=== PATIENT | male | born 1950 | race Caucasian/White ===

== ENCOUNTER 2020-02-05 10:59 | Emergency (ER) | payer MEDICARE, SELFPAY ==
[2020-02-05 11:00] VITALS: BP 149/97; PULSE 105; RESP 22; TEMP 37.5; O2SAT 95; BMI 33.0
--- NOTE | 2020-02-05 11:20 | XR_ITS ---
PROCEDURE: XR CHEST 2V CLINICAL HISTORY: FEVER, SOA COMPARISON: CR CXR CHEST(2 VIEWS-NOT PORTABLE) from 09/06/2014 CT CTAC CTA-CHEST from 09/06/2014 CR CXR CHEST(2 VIEWS-NOT PORTABLE) from 09/08/2014 FINDINGS: The cardiomediastinal silhouette and pulmonary vascularity are within normal limits. The lungs are clear without infiltrates, suspicious nodules, or pleural effusions. Minimal fibrotic changes are present in the left lung base. There is ankylosis of the thoracic spine. IMPRESSION: No acute findings. Dictated by: Kj Roach MD 02/05/2020 15:15 Kj Roach MD in [place] 02/05/2020 15:15
[2020-02-05 11:33] LABS: Strep Scrn Group A (Rapid) Negative (Negative)
--- NOTE | 2020-02-05 11:48 | HMH.EDGENADL ---
ED Disposition Clinical Impression: Acute bacterial bronchitis Disposition: Home, Self-Care Condition on Discharge: Good Instructions: DI for Acute Bronchitis Prescriptions: methylPREDNISolone [Medrol] 4 mg PO DIRECTED #21 pack Prescription Printed Azithromycin [Z-Jcarlos 250mg Tab*] 250 mg PO UD DOSE PK #6 tab Prescription Printed Referrals: PCP,No [Primary Care Provider] - 3 days - Critical Care Critical Care Time: No Attestation: On 02/05/20, the high probability of a clinically significant, sudden or life threatening deterioration of the following system(s) required my full and direct attention, intervention and personal management. The time I documented below is in addition to time spent performing reported procedures but includes the following listed in this critical care notation. Medical Decision Making - Medical Records Medical records reviewed: Yes: I reviewed the patient's medical records. - Javier Inquiry Pt receiving controlled substance: No Vital Signs: 02/05/20 11:00 Temperature 99.5 F Temperature Source Oral Pulse Rate [Right] 105 H Respiratory Rate 22 Blood Pressure [Right Arm] 149/97 H Blood Pressure Mean [Right Arm] 114 02 Sat by Pulse Oximetry 95 - Lab Data Lab Results 02/05/20 11:15: Influenza Type A Ag Negative, Influenza Type B Ag Negative 02/05/20 11:15: Group A Strep Rapid Negative Orders (Tests/Meds): ORDERS Category Date Time Status Chest XR 2 view (NOT portable) [XR chest 2V] Stat Exams 02/05/20 11:20 Taken Covid-19 Nasal PCR Sendout [facility] 02/05/20 11:35 Received Strep Screen Confirmation Stat Micro 02/05/20 11:15 Received - Radiology Data #1 Image(s): Chest Image Reviewed: Yes I reviewed the patient's radiology results Preliminary Findings: Normal/NAD Medical Decision Narrative: Patient here with over a week of cough productive of yellowish phlegm and fevers. While his chest x-ray shows no signs of pneumonia, I am concerned that this febrile elderly patient with possible acute bacterial bronchitis. Will prescribe antibiotics and steroids and advised close follow-up with primary care provider. Flu, strep negative. COVID swab was sent. General Adult HPI - General Chief complaint: Fever Stated complaint: congestion fever cough Time Seen by Provider: 02/05/20 11:48 Mode of Arrival: Ambulatory Source of Information: Patient Limitations: No Limitations Description of Symptoms (Recalled from ER Triage Doc. by RN): PT C/O COUGH, SOA, PAIN WHEN HE BREATHES, FEVER, SORE THROAT AND CONGESTION X WEEK. - History of Present Illness HPI narrative: This is a 69-year-old male who presents to the emergency department for evaluation of cough productive of yellowish phlegm, sore throat and nasal congestion for the last week. He has been seen twice by the [facility] where he usually receives care and reportedly was prescribed some antibiotics, but the prescription has not come through. He denies any known history of pulmonary problems including COPD. He has had fevers that he has been using Advil to help control. He has been using [id number]-[id number]-[id number] cough medicine for his cough. He denies any vomiting, diarrhea. No exacerbating or alleviating factors. He has developed some anterior chest soreness after coughing. He denies any difficulty breathing. No known COVID exposure. - Related Data Previous Rx's Medication Instructions Recorded Azithromycin [Z-Jcarlos 250mg Tab*] 250 mg PO UD DOSE PK #6 tab 02/05/20 methylPREDNISolone [Medrol] 4 mg PO DIRECTED #21 pack 02/05/20 Allergies Allergy/AdvReac Type Severity Reaction Status Date / Time celecoxib [From CELEBREX] Allergy Mild Verified 09/15/17 07:00 [facility] History - Hepatitis A Screen Drug use history?: No High risk sexual behaviors?: No History of sexually transmitted infection?: No Currently employed?: No Childcare worker?: No Do you have indoor plumbing?: Yes Do you have electricit
[2020-02-05 12:27] VITALS: BP 154/87; PULSE 101; RESP 22; TEMP 37.2; O2SAT 95
[2020-02-06 08:58] LABS: Covid-19 Nasal PCR Sendout UK Not Detected
--- NOTE | 2020-02-09 18:52 | PC.NURSE ---
Negative covid results given over the phone at this time
== END 2020-02-05 12:27 | disposition home or self-care (01) ==
PROVIDERS: Emergency Provider Emergency Medicine
DX: J20.8 Acute bronchitis due to other specified organisms (principal); Z20.828 Contact with and (suspected) exposure to other viral communicable diseases
CPT/HCPCS: 71046; 87275; 87276; 87430; 99283; U0003

== ENCOUNTER → 2020-04-25 08:52 | Outpatient (CLI) | payer OTHER, MEDICARE, SELFPAY ==
--- NOTE | 2020-04-25 09:02 | XR_ITS ---
PROCEDURE: XR THORACIC SPINE 2V CLINICAL INDICATION: ARTHRITIS COMPARISON: CR CXR CHEST(2 VIEWS-NOT PORTABLE) from 09/08/2014 FINDINGS: There is ankylosis of the thoracic spine not significantly changed from 09/08/2014. There is kyphosis of the thoracic spine. There is minimal wedging of T8-T7-T6-T5 and T4 unchanged. 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
== END ==
PROVIDERS: Visit Provider Orthopaedic Surgery
DX: M54.6 Pain in thoracic spine (principal); M13.80 Other specified arthritis, unspecified site
CPT/HCPCS: 72070

== ENCOUNTER 2021-09-26 15:39 | Emergency (ER) | payer MEDICARE, SELFPAY ==
[2021-09-26 15:40] VITALS: BP 183/94; PULSE 61; RESP 16; TEMP 36.9; O2SAT 98; BMI 33.9
[2021-09-26 16:17] VITALS: BMI 33.9
--- NOTE | 2021-09-26 16:17 | XR_ITS ---
PROCEDURE INFORMATION: Exam: XR Chest Exam date and time: 09/26/2021 4:21 PM Age: 70 years old Clinical indication: Pain; Right-sided; Additional info: Right rib pain TECHNIQUE: Imaging protocol: XR of the chest. Views: 2 views. COMPARISON: CR XR CHEST 2V 02/05/2020 11:21 AM FINDINGS: Lungs: Unremarkable. No consolidation. Pleural spaces: Unremarkable. No pleural effusion. No pneumothorax. Heart/Mediastinum: Unremarkable. No cardiomegaly. Bones/joints: Unremarkable. IMPRESSION: No acute cardiopulmonary disease.
--- NOTE | 2021-09-26 16:21 | ECG_ITS ---
APPROVED REPORT Exam: Resting ECG HR:53 bpm ECG Measurements Heart Rate 53 AXES VT 182 P 44 QRSd 119 QRS -58 QT 468 T 2 QTc 452 Conclusion SINUS BRADYCARDIA LEFT AXIS DEVIATION [QRS AXIS < -30] PATTERN CONSISTENT WITH PULMONARY DISEASE MODERATE INTRAVENTRICULAR CONDUCTION DELAY [110+ ms QRS DURATION] ABNORMAL ECG UNCONFIRMED REPORT Electronically signed by : Nav Lu MD 09/27/2021 07:59:57
[2021-09-26 17:10] LABS: Basophils # 0.1 K/mm3 (0-0.2); Basophils % 1.2 % (0.1-2.0); Chloride 103 mmol/L (98-107); Eosinophils # 0.1 K/mm3 (0.0-0.4); Eosinophils % 2.6 % (0.1-12.0); Hematocrit 37.8 % (42.0-52.0); Hemoglobin 12.5 g/dL (14.1-18.0); Lymphocytes # 1.6 K/mm3 (0.7-4.5); Lymphocytes % 37.5 % (10-50); Mean Corpuscular HGB Conc 33.1 g/dL (31.8-35.4); Mean Corpuscular Hemoglobin 27.5 pg (27.0-31.2); Mean Corpuscular Volume 83.1 fl (80-94); Mean Platelet Volume 7.3 fl (7.4-10.4); Monocytes # 0.3 K/mm3 (0.1-1.0); Monocytes % 7.3 % (1.7-9.3); Neutrophils # 2.2 K/mm3 (1.8-7.8); Neutrophils % 51.4 % (37.0-80.0); Platelet Count 256 K/mm3 (142-424); Red Blood Count 4.55 M/mm3 (4.60-6.20); Red Cell Distribution Width 13.7 % (11.5-17.5); Sodium 138 mmol/L (136-145); White Blood Count 4.2 K/mm3 (4.8-10.8)
[2021-09-26 17:12] LABS: Alanine Aminotransferase 36 U/L (12-78); Aspartate Amino Transferase 39 U/L (17-59); Blood Urea Nitrogen 14 mg/dl (9-20); Creatinine Clearance Estimated 107 mL/min (50-200); Estimated Glomerular Filt Rate 83 ml/min (>60); GFR (African American) 101 ML/MIN (>60)
[2021-09-26 17:13] LABS: Albumin Level 3.7 g/dl (3.5-5.0); Albumin/Globulin Ratio 1.4 (1.1-1.8); Alkaline Phosphatase 53 U/L (38-126); Bilirubin,Total 0.4 mg/dl (0.2-1.3); Calcium 8.6 mg/dl (8.4-10.2); Carbon Dioxide 28 mmol/L (22.0-30.0); Globulin 2.6 g/dL (1.3-3.2); Glucose 137 mg/dl (74-100); Total Protein,Serum 6.3 g/dl (6.3-8.2)
--- NOTE | 2021-09-26 17:15 | PC.NURSE ---
potassium 3.0 repeated, verified and MD notified
--- NOTE | 2021-09-26 17:37 | HMH.EDGENADL ---
ED Disposition Clinical Impression: Cholelithiasis Qualifiers: Cholelithiasis location: gallbladder Cholecystitis presence: without cholecystitis Biliary obstruction: without biliary obstruction Qualified Code(s): K80.20 - Calculus of gallbladder without cholecystitis without obstruction Disposition: Home, Self-Care Condition on Discharge: Good Instructions: DI for Gallstones, Fat-Restricted Diet Additional Instructions: Low-fat diet. Percocet as needed if pain returns. Zofran as needed for nausea. Return to the emergency department if you have any episodes of intractable pain or if fever, vomiting, or jaundice. Follow-up with surgery as an outpatient, [facility] or at [facility], Dr. Beltre. Additional instructions for CONTROLLED SUBSTANCES: You have been prescribed a medication that is a controlled substance. Controlled substances include pain medications known as opiates and sedative nerve medications known as benzodiazepines. Tramadol, fioricet, and gabapentin are also controlled substances. Some common opiates include: Codeine (such as Tylenol #3) Hydrocodone (Vicodin, Lortab, Lorcet, Berclair) Oxycodone (Percocet, Percodan, Oxycodone, Oxy IR) Some common benzodiazepines include: Diazepam (Valium) Lorazepam (Ativan) Alprazolam (Xanax) Clonazepam (Klonopin) Oxazepam (Serax) All of these controlled substances are highly addictive and frequently abused. Misuse can and frequently does lead to addiction as well as overdose and . Medication should be stored in a locked cabinet or other secure storage unit. Do not store the medication in a motor vehicle. Short term supplies, 3 days or less, are prescribed because of the highly addictive nature of the medication. Any of the controlled substance medication NOT taken should be disposed of properly and NOT SAVED. The recommended method of disposing of unused medications is: Place the medicines in a sealable plastic bag. If the medicine is a solid, crush it or add water to dissolve it. Add something undesirable (cat litter, coffee grounds, etc.) Dispose of sealed bag in household trash Do not flush or pour unused medicines down a sink or drain. Controlled substances should not be shared, given away or sold. Because of the addictive nature and frequent abuse, these medications are sometimes stolen. These medications should be kept in a safe place where they cannot be stolen. Do not keep them in your car or purse. Lost or stolen prescriptions for controlled substances WILL NOT BE REFILLED in this emergency department, regardless of whether a police report was filed. Prescriptions: Oxycodone HCl/Acetaminophen [Percocet 5/325mg tablet] 1 tab PO Q6HP PRN #10 tablet PRN Reason: Moderate To Severe Pain Transmission Status: Sent to [facility] Ondansetron [Zofran 4mg ODT] 4 mg PO TIDP PRN #10 tab PRN Reason: Nausea And Vomiting Transmission Status: Pending to [facility] Referrals: Provider,Referral, MD [Primary Care Provider] - - Critical Care Critical Care Time: No Attestation: On 09/26/21, the high probability of a clinically significant, sudden or life threatening deterioration of the following system(s) required my full and direct attention, intervention and personal management. The time I documented below is in addition to time spent performing reported procedures but includes the following listed in this critical care notation. Medical Decision Making - Javier Inquiry Pt receiving controlled substance: Yes Javier was queried for this patient: Yes Risks and benefits of using a controlled substance: were discussed with pt by me Vital Signs: 09/26/21 15:40 Temperature 98.4 F Temperature Source Oral Pulse Rate [Right] 61 Respiratory Rate 16 Blood Pressure [Right Arm] 183/94 H Blood Pressure Mean [Right Arm] 123 Blood Pressure Source [Right Arm] Automatic Cuff Blood Pressure Position [Right Ar
[2021-09-26 17:41] LABS: Troponin I < 0.01 ng/ml (0.00-0.034)
--- NOTE | 2021-09-26 17:51 | US_ITS ---
PROCEDURE INFORMATION: Exam: US Abdomen, Limited; Right Upper Quadrant Exam date and time: 09/26/2021 5:55 PM Age: 70 years old Clinical indication: Abdominal pain; Acute; Patient HX: Right rib/ back pain today; Additional info: Rib pain, back pain TECHNIQUE: Imaging protocol: US abdomen. Real time ultrasound with image documentation. Limited exam focused on the right upper quadrant. COMPARISON: ABDPELWO CT abdomen pelvis wo con 09/15/2017 7:03 AM FINDINGS: Liver: Moderate diffuse increased echotexture of the liver compatible with moderate hepatic steatosis, which limits evaluation of intrahepatic pathology. Gallbladder: Echogenic foci dependently layer within the gallbladder fossa without posterior shadowing. No gallbladder wall thickening, or peripheral fluid. Biliary ducts: Normal. No stones. No dilation. Pancreas: Visualized pancreas is unremarkable. Right kidney: Normal. No mass. No hydronephrosis. IMPRESSION: 1. Cholelithiasis without ultrasound evidence of cholecystitis. 2. Moderate diffuse increased echotexture of the liver compatible with moderate hepatic steatosis, which limits evaluation of intrahepatic pathology.
[2021-09-26 17:58] LABS: Lipase 105 U/L (23-300)
[2021-09-26 19:49] LABS: Troponin I < 0.01 ng/ml (0.00-0.034)
[2021-09-26 20:09] VITALS: BP 154/78; PULSE 60; RESP 16; TEMP 36.9; O2SAT 98
== END 2021-09-26 20:15 | disposition home or self-care (01) ==
PROVIDERS: Emergency Provider Emergency Medicine
DX: K80.20 Calculus of gallbladder without cholecystitis without obstruction (principal); R07.81 Pleurodynia; R00.1 Bradycardia, unspecified; Z79.52 Long term (current) use of systemic steroids; Z88.8 Allergy status to other drugs, medicaments and biological substances
CPT/HCPCS: 71046; 76705; 80053; 83690; 84484; 85025; 93005; 96374; 99285

== ENCOUNTER 2022-09-26 12:46 | Emergency (ER) | payer MEDICARE, SELFPAY ==
[2022-09-26 13:10] VITALS: BP 167/84; PULSE 59; RESP 18; TEMP 36.6; O2SAT 96; BMI 34.2
--- NOTE | 2022-09-26 13:18 | EXP.UTC ---
Discharge Plan Disposition Patient Disposition: Home, Self-Care Condition: Good Prescriptions Prescriptions: New cyclobenzaprine 10 mg Tablet 10 mg PO BID PRN (Reason: Muscle Spasm) Qty: 20 0RF methylprednisolone 4 mg Tablets,Dose Pack 4 mg PO DIRECTED Qty: 21 0RF Referrals Follow up/Referrals: Provider,Referral, MD [Primary Care Provider] - See instructions Activity Restrictions/Add. Instructions Additional Instructions/Restrictions: Go home and rest. It would be best if you rested tomorrow too. No heavy lifting. No twisting. Take the oral medications as directed. The muscle relaxer (cyclobenzaprine--Flexeril) will make you drowsy, so don't drive or operate heavy machinery after taking it. Don't start the oral steroids (medrol dose pack) until tomorrow, since you had the shots in here today. Follow up with your regular doctor. GO TO THE ER FOR ANY WORSENING SYMPTOMS OR CONCERN, ESPECIALLY BOWEL OR BLADDER ISSUES, SADDLE AREA NUMBNESS, FEVER, ETC Clinical Impressions Clinical Impression: Sciatica Instructions Patient Instructions: TIP Rodriguez for Sciatica Discharge ED Provider: Gonzalez Valdes [facility] [place] General Stated complaint: Possible sciatic nerve pain Time Seen by Provider: 09/26/22 13:17 History of Present Illness Provider Complaint: He states that he twisted and lifted something heavy 1 day ago and began having low back pain that radiates down his left leg. He denies other complaints or injury. He denies any bowel or bladder complaints. He called the [place] where his pcp is and he was told to come here to discuss getting a steroid shot. He has had several episodes like this in the past. Related Data Previous Rx's Medication Instructions Recorded cyclobenzaprine 10 mg tablet 10 mg PO BID PRN Muscle Spasm #20 09/26/22 tabs methylprednisolone 4 mg tablets in 4 mg PO DIRECTED #21 tabs 09/26/22 a dose pack Allergies Allergy/AdvReac Type Severity Reaction Status Date / Time celecoxib [From CELEBREX] Allergy Mild Verified 09/26/22 13:19 [facility] Disclaimer: The information contained in this section may have been updated after the patient was seen, as this information can be updated by other users. Social History Smoking Status: Former smoker alcohol intake: never current occupational status: retired Travel in the last 8 weeks: None ROS Obtained: Yes All systems reviewed & no additional complaints except as documented Constitutional Constitutional: Denies chills and Denies fever(s) Eyes Eyes: Denies eye discharge ENT Ears, Nose, Mouth, and Throat: Denies dizziness, Denies otalgia and Denies sore throat Cardiovascular Cardiovascular: Denies chest pain Respiratory Respiratory: Denies shortness of breath, Denies chest congestion, Denies cough, Denies stridor and Denies wheezing Gastrointestinal Gastrointestingal: Denies nausea or vomiting Musculoskeletal Musculoskeletal: Reports system reviewed and no additional complaints, except as documented and Denies arthralgias Integumentary/Breasts Skin/Breast: Denies rash Neurologic Neurologic: Denies dizziness and Denies paresthesias Allergic/Immunologic Allergic/Immunologic: Denies wheezing Physical Exam General General appearance: alert and in no apparent distress Head Head exam: atraumatic, normocephalic and normal inspection Eye Eye exam: Present normal appearance, PERRL and EOMI ENT ENT exam: Present normal exam, normal oropharynx, mucous membranes moist, TM's normal bilaterally and normal external ear exam Neck Neck exam: Present normal inspection, full ROM and trachea midline; Absent meningismus or lymphadenopathy Chest Chest inspection: Present normal inspection and symmetric chest wall rise; Absent tenderness Respiratory Respiratory exam: Present normal lung sounds bilaterally;
--- NOTE | 2022-09-26 14:04 | PC.NURSE ---
verified with pharm okay for toradol shot had one in the past.
[2022-09-26 14:28] VITALS: BP 167/84; PULSE 57; RESP 18; TEMP 36.6; O2SAT 96
== END 2022-09-26 14:28 | disposition home or self-care (01) ==
PROVIDERS: Emergency Provider Nurse Practitioner Family
DX: M54.30 Sciatica, unspecified side (principal); Z87.891 Personal history of nicotine dependence; X50.9XXA Other and unspecified overexertion or strenuous movements or postures, initial encounter
CPT/HCPCS: 96372; 99212; 99214; G0463

== ENCOUNTER 2022-10-12 21:42 | Emergency (ER) | payer MEDICARE, SELFPAY ==
[2022-10-12 21:43] VITALS: BP 183/100; PULSE 91; RESP 16; TEMP 36.8; O2SAT 95; BMI 34.2
[2022-10-12 22:01] VITALS: BP 172/98; PULSE 80; O2SAT 94
[2022-10-12 22:13] LABS: Basophils % 0.7 % (0.1-2.0); Eosinophils # 0.1 K/mm3 (0.0-0.4); Eosinophils % 2.8 % (0.1-12.0); Hematocrit 38.4 % (42.0-52.0); Hemoglobin 12.4 g/dL (14.1-18.0); Lymphocytes # 1.3 K/mm3 (0.7-4.5); Lymphocytes % 29.6 % (10-50); Mean Corpuscular HGB Conc 32.3 g/dL (31.8-35.4); Mean Corpuscular Hemoglobin 26.4 pg (27.0-31.2); Mean Corpuscular Volume 81.6 fl (80-94); Mean Platelet Volume 7.6 fl (7.4-10.4); Monocytes # 0.4 K/mm3 (0.1-1.0); Monocytes % 8.9 % (1.7-9.3); Neutrophils # 2.6 K/mm3 (1.8-7.8); Neutrophils % 57.9 % (37.0-80.0); Platelet Count 200 K/mm3 (142-424); White Blood Count 4.4 K/mm3 (4.8-10.8)
[2022-10-12 22:26] LABS: Alanine Aminotransferase 30 U/L (12-78); Albumin Level 3.6 g/dl (3.5-5.0); Albumin/Globulin Ratio 1.3 (1.1-1.8); Alkaline Phosphatase 58 U/L (38-126); Anion Gap 15.7 mEq/L (5-15); Aspartate Amino Transferase 30 U/L (17-59); Bilirubin,Total 0.4 mg/dl (0.2-1.3); Blood Urea Nitrogen 12 mg/dl (9-20); Calcium 8.5 mg/dl (8.4-10.2); Carbon Dioxide 26 mmol/L (22.0-30.0); Chloride 98 mmol/L (98-107); Creatinine Clearance Estimated 89 mL/min (50-200); Estimated Glomerular Filt Rate 60 ml/min (>60); GFR (African American) 72 ML/MIN (>60); Globulin 2.7 g/dL (1.3-3.2); Glucose 119 mg/dl (74-100); Potassium 3.7 mmoL/L (3.5-5.1); Sodium 136 mmol/L (136-145); Total Protein,Serum 6.3 g/dl (6.3-8.2)
--- NOTE | 2022-10-12 22:31 | HMH.EDSKAF ---
Discharge Plan Disposition Patient Disposition: Home, Self-Care Prescriptions Prescriptions: New prednisone [prednisone] 20 mg tablet 20 mg PO BID Qty: 10 0RF No Action cyclobenzaprine 10 mg Tablet 10 mg PO BID PRN (Reason: Muscle Spasm) Qty: 20 0RF methylprednisolone 4 mg Tablets,Dose Pack 4 mg PO DIRECTED Qty: 21 0RF Referrals Follow up/Referrals: Provider,Referral, MD [Primary Care Provider] - See instructions Clinical Impressions Clinical Impression: Allergic reaction to drug Instructions Patient Instructions: DI for Adverse Drug Reaction -- Allergic Discharge ED Provider: Gabi (ED)Kamari Skin/Abscess/FB HPI General Chief complaint: Skin/Abscess/Foreign Body Stated complaint: rash Time Seen by Provider: 10/12/22 22:31 Mode of Arrival: Ambulatory Source of Information: Patient and Medical Record Limitations: No Limitations Description of Symptoms (Recalled from ER Triage Doc. by RN): pt states he took flexril 10mg last night @ 5pm for first time then develop a rash. pt has taken 50mg benadryl @ 8pm History of Present Illness HPI narrative: diffuse rash after using flexaril w/o resp distress- itching MD complaint: rash Onset (ago): hour(s) Location: generalized Severity: moderate Associated symptoms: denies other symptoms Related Data Previous Rx's Medication Instructions Recorded cyclobenzaprine 10 mg tablet 10 mg PO BID PRN Muscle Spasm #20 09/26/22 tabs methylprednisolone 4 mg tablets in 4 mg PO DIRECTED #21 tabs 09/26/22 a dose pack prednisone 20 mg tablet 20 mg PO BID #10 tabs 10/12/22 Allergies Allergy/AdvReac Type Severity Reaction Status Date / Time celecoxib [From CELEBREX] Allergy Mild Verified 09/26/22 13:19 [facility] Disclaimer: The information contained in this section may have been updated after the patient was seen, as this information can be updated by other users. Social History (Updated 09/26/22 @ 15:18 by Gonzalez Valdes APRN) Smoking Status: Never smoker alcohol intake: never current occupational status: retired Travel in the last 8 weeks: None ROS Obtained: Yes All systems reviewed & no additional complaints except as documented Physical Exam General General appearance: alert Head Head exam: normocephalic Eye Eye exam: Present PERRL and EOMI; Absent scleral icterus ENT ENT exam: Present mucous membranes moist Neck Neck exam: Present trachea midline Respiratory Respiratory exam: Present normal lung sounds bilaterally; Absent respiratory distress Cardiovascular Cardiovascular exam: Present regular rate Extremities Exam Extremities exam: Present full ROM Neurological Exam Neurological exam: Present alert, oriented X3 and CN II-XII intact; Absent motor sensory deficit Psychiatric Psychiatric exam: Present normal affect Skin Skin exam: Present rash (rash consistent with uturica in some area and blotchy on back - ) Medical Decision Making Medical Records Medical records reviewed: Yes I reviewed the patient's medical records. Javier Inquiry Pt receiving controlled substance: No Vital Signs: 10/12/22 21:43 10/12/22 22:01 Temperature 98.2 F Temperature Source Oral Pulse Rate 80 Pulse Rate [Right] 91 H Respiratory Rate 16 Blood Pressure 172/98 H Blood Pressure [Right Arm] 183/100 H Blood Pressure Mean [Right Arm] 127 02 Sat by Pulse Oximetry 95 94 L Lab Data Lab results reviewed: Yes I reviewed the patient's lab results. Lab Results 10/12/22 22:00: WBC 4.4 L, RBC 4.70, Hgb 12.4 L, Hct 38.4 L, MCV 81.6, MCH 26.4 L, MCHC 32.3, RDW 16.0, Plt Count 200, MPV 7.6, Neut % (Auto) 57.9, Lymph % (Auto) 29.6, Sheridan % (Auto) 8.9, Eos % (Auto) 2.8, Baso % (Auto) 0.7, Neut # (Auto) 2.6, Lymph # (Auto) 1.3, Sheridan # (Auto) 0.4, Eos # (Auto) 0.1, Baso # (Auto) 0.0 10/12/22 22:00: Sodium 136, Potassium 3.7, Chloride 98, Carbon Dioxide 26, Anion Gap 15.7 H, BUN 12, Creatinine 1.20, Estimated Creat Clear 89, Estimated
[2022-10-12 22:41] VITALS: BP 191/108; PULSE 80; RESP 18; TEMP 36.6; O2SAT 94
== END 2022-10-12 22:48 | disposition home or self-care (01) ==
PROVIDERS: Emergency Provider Emergency Medicine
DX: R21 Rash and other nonspecific skin eruption (principal); T50.905A Adverse effect of unspecified drugs, medicaments and biological substances, initial encounter
CPT/HCPCS: 80053; 85025; 96374; 96375; 99284

== ENCOUNTER 2022-11-06 09:25 | Emergency (ER) | payer OTHER, MEDICARE, SELFPAY ==
[2022-11-06 09:27] VITALS: BP 132/81; PULSE 67; RESP 17; TEMP 36.7; O2SAT 98; BMI 32.1
--- NOTE | 2022-11-06 09:47 | HMH.EDBACK ---
Discharge Plan Disposition Patient Disposition: Home, Self-Care Prescriptions Prescriptions: New prednisone 20 mg tablet 60 mg PO DAILY Qty: 15 0RF ketorolac 10 mg Tablet 10 mg PO Q6H PRN (Reason: pain.) Qty: 8 0RF Referrals Follow up/Referrals: Selin Gurrola MD [Primary Care Provider] - See instructions Clinical Impressions Clinical Impression: Sciatica Instructions Patient Instructions: DI for Low Back Pain, DI for Back Pain With Sciatica Discharge ED Provider: Andres Kasper Back Pain HPI General Chief Complaint: Back Pain/Injury Stated Complaint: right side back to knee pain, no accident Time Seen by Provider: 11/06/22 09:48 Mode of Arrival: Ambulatory Source of Information: Patient Limitations: No Limitations Description of Symptoms (Recalled from ER Triage Doc. by RN): 71 M presents with a sciatic nerve exacerbation. He was seen here at [facility] a couple of months ago with the same issue, given steroids and NSAIDs which helped after a few days. Patient woke up this AM with same symptoms which has gotten worse over the last couple of days. Denies loss of bowel, bladder, dysuria, hematuria. History of Present Illness HPI Narrative: The patient presents to the emergency department complaining of right-sided lower back pain radiating to the right lower extremity. He has had similar symptoms approximately 1 month ago. He was seen in the urgent treatment center across the hallway from here. He received steroids and Toradol with almost complete relief. The symptoms have recurred now for the last 3 to 4 days. He denies any recent injuries. He has a known history of sciatica and intervertebral disc disease from prior injuries. He is a diet controlled diabetic. He takes no medications for diabetes. Complaint: back pain Onset (ago): day(s) (4) Similar Symptoms Previously: Yes Related Data Previous Rx's Medication Instructions Recorded ketorolac 10 mg tablet 10 mg PO Q6H PRN pain. #8 tabs 11/06/22 prednisone 20 mg tablet 60 mg PO DAILY #15 tabs 11/06/22 Allergies Allergy/AdvReac Type Severity Reaction Status Date / Time celecoxib [From CELEBREX] Allergy Mild Verified 09/26/22 13:19 [facility] Disclaimer: The information contained in this section may have been updated after the patient was seen, as this information can be updated by other users. Social History (Updated 09/26/22 @ 15:18 by Gonzalez Valdes APRN) Smoking Status: Never smoker alcohol intake: never current occupational status: retired Travel in the last 8 weeks: None ROS Obtained: Yes All systems reviewed & no additional complaints except as documented Physical Exam General General appearance: alert Head Head exam: atraumatic Eye Eye exam: Present normal appearance ENT ENT exam: Present normal exam Neck Neck exam: Present normal inspection and full ROM; Absent tenderness or meningismus Chest Chest inspection: Present normal inspection and symmetric chest wall rise; Absent tenderness Respiratory Respiratory exam: Present normal lung sounds bilaterally; Absent respiratory distress or accessory muscle use Cardiovascular Cardiovascular exam: Present regular rate, normal rhythm and normal heart sounds Abdominal Exam Abdominal exam: Present soft and normal bowel sounds; Absent distention, tenderness, heel tap sign, Avalos's sign, Rovsing's sign, tenderness at McBurney's Point or mass Extremities Exam Extremities exam: Present normal inspection, full ROM and normal capillary refill; Absent calf tenderness Back Exam Back exam: Present normal inspection and straight leg raise (R); Absent CVA tenderness (R), CVA tenderness (L) or straight leg raise (L) Neurological Exam Neurological exam: Present alert and oriented X3; Absent motor sensory deficit or reflexes normal (1 out of 4 patellar tendon reflex on the right, 2 out of 4 patellar tendon reflex on the left. Otherwise neurovascularly intact.) Psychiatric Psychiatric exam:
[2022-11-06 10:02] VITALS: BP 129/81; PULSE 69; RESP 17; TEMP 36.7; O2SAT 96
== END 2022-11-06 10:02 | disposition home or self-care (01) ==
PROVIDERS: Emergency Provider Emergency Medicine; PCP Internal Medicine
DX: M54.41 Lumbago with sciatica, right side (principal); E11.9 Type 2 diabetes mellitus without complications
CPT/HCPCS: 96372; 99283; 99284

== ENCOUNTER 2024-02-24 13:41 | Emergency (ER) | payer OTHER, MEDICARE, SELFPAY ==
[2024-02-24 13:47] VITALS: BP 137/75; PULSE 57; O2SAT 99
[2024-02-24 13:49] VITALS: BP 137/75; PULSE 59; RESP 18; O2SAT 98; BMI 32.8
--- NOTE | 2024-02-24 13:52 | PC.NURSE ---
FSBS was 154 at this time.
[2024-02-24 14:00] VITALS: BP 135/71; O2SAT 94
--- NOTE | 2024-02-24 14:17 | CT_ITS ---
FINAL REPORT TECHNIQUE: Noncontrast exam This study was performed with techniques to keep radiation doses as low as reasonably achievable, (ALARA). Individualized dose reduction techniques using automated exposure control or adjustment of mA and/or kV according to the patient's size were employed. CLINICAL HISTORY: PEÑA, mild, h/o SAH COMPARISON: None FINDINGS: Mild atrophy and chronic ischemic white matter changes are noted. The patient has undergone a previous right temporal craniotomy. There is streak artifact related to an implanted aneurysm clip. There is a dense area in the right side of the minerva, that likely related to the streak artifact as described. No cortical edema is present. There is no mass or hemorrhage. Ventricles are normal. Bone windows show no skull fracture or obvious obstructive lesion. IMPRESSION: No acute intracranial abnormality or obvious mass. The patient has post right temporal craniotomy. Atrophy and chronic ischemic white matter changes as above. Reviewed, Interpreted and Dictated by Deacon Monk MD Transcribed by Shruti Mcclellan Authenticated and [facility]
--- NOTE | 2024-02-24 14:20 | ED_ITS ---
Discharge Plan Disposition Patient Disposition: Home, Self-Care Chief Complaint: Recheck/Abnormal Lab/Rx Prescriptions Prescriptions: No Action prednisone 20 mg tablet 60 mg PO DAILY Qty: 15 0RF ketorolac 10 mg Tablet 10 mg PO Q6H PRN (Reason: pain.) Qty: 8 0RF Referrals Follow up/Referrals: Saúl Cast MD [Staff Physician] - See instructions ProviderOmer MD [Referring] - See instructions Activity Restrictions/Add. Instructions Additional Instructions/Restrictions: Call your family doctor to establish care for this visit to the emergency department and schedule follow-up within 48 hours to ensure improvement. If you have any worsening of your condition or any other concerning signs or symptoms, return to the emergency department or your primary care doctor for further evaluation. Clinical Impressions Clinical Impression: Near syncope, Headache Print Language Print Language: Omani Discharge ED Provider: Donn Gordon General Adult HPI <Kevin Carver MD - Last Filed: 02/24/24 14:22> General Chief complaint: Recheck/Abnormal Lab/Rx Stated complaint: feeling off while driving Time Seen by Provider: 02/24/24 14:10 Mode of Arrival: Ambulatory Source of Information: Patient Limitations: No Limitations Description of Symptoms (Recalled from ER Triage Doc. by RN): Pt reports he was driving down the road when he zoned out for a few seconds. Pt reports he still feels off . Pt reports he has had a brain aneurysm in the past so he wanted to be evaluated. History of Present Illness HPI narrative: Patient is a 73-year-old male presents today with multiple complaints. 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 States that he was driving and all of a sudden felt as though my eyes rolled back and I saw white only lasted for a few moments but he states he did feel lightheaded like he may want to pass out. No history of any cardiovascular disease in the past aside from his aneurysm. No sudden headache or thunderclap. He does have a mild headache which he states is worse than normal. Also still feels little off. Denies any focal neurologic symptoms denies any chest pain shortness of breath fevers chills or any other symptoms. Related Data Previous Rx's ?Medication ?Instructions ?Recorded ketorolac 10 mg tablet 10 mg PO Q6H PRN pain. #8 tabs 11/06/22 prednisone 20 mg tablet 60 mg (3 x 20 mg) PO DAILY #15 tabs 11/06/22 Allergies Allergy/AdvReac Type Severity Reaction Status Date / Time celecoxib [From CELEBREX] Allergy Mild Verified 09/26/22 13:19 PFSH <Kevin Carver MD - Last Filed: 02/24/24 14:22> PFS Disclaimer: The information contained in this section may have been updated after the patient was seen, as this information can be updated by other users. Social History (Updated 09/26/22 @ 15:18 by Gonzalez Valdes APRN) Smoking Status: Never smoker alcohol intake: never current occupational status: retired Travel in the last 8 weeks: None <Kevin Carver MD - Last Filed: 02/24/24 14:22> ROS Obtained: Yes All systems reviewed & no additional complaints except as documented Physical Exam <Kevin Carver MD - Last Filed: 02/24/24 14:22> General General appearance: alert and in no apparent distress Respiratory Respiratory exam: Present normal lung sounds bilaterally; Absent respiratory distress Cardiovascular Cardiovascular exam: Present regular rate and normal rhythm Abdominal Exam Abdominal exam: Present soft and distention Neurological Exam Neurological exam: Present alert, oriented X3, CN II-XII intact and normal gait; Absent motor sensory deficit Medical Decision Making <Kevin Carver MD - Last Filed: 02/24/24 14:22> Medical Records Screening: Per USPSTF and CDC recommendations, given the prevalence of disease in our region, it is our hospital?s policy to screen for HIV and viral Hepatitis for all patients aged 18 and over and those with ongoing risk factors. Javier Inquiry Pt receiving controlled substance: No Vital Signs: 02/24/24 13:47 02/24/24 13:49 02/24/24 14:00 Pulse Rate 57 L Pulse Rate [Right Brachial] 59 L Respiratory Rate 18 Blood Pressure 137/75 135/71 Blood Pressure [Right Arm] 137/75 Blood Pressure Mean [Right Arm] 95 02 Sat by Pulse Oximetry 99 98 94 L Oxygen Delivery Method Room Air 02/24/24 14:31 Pulse Rate 60 Pulse Rate [Right Brachial] Respiratory Rate Blood Pressure 137/79 Blood Pressure [Right Arm] Blood Pressure Mean [Right Arm] 02 Sat by Pulse Oximetry 95 Oxygen Delivery Method Lab Data Lab Results 02/24/24 14:30: WBC 5.6, RBC 4.28 L, Hgb 11.1 L, Hct 35.8 L, MCV 83.5, MCH 26.0 L, MCHC 31.1 L, RDW 14.7, Plt Count 299, MPV 6.8 L, Neut % (Auto) 63.1, Lymph % (Auto) 28.2, [place] % (Auto) 5.8, Eos % (Auto) 2.4, Baso % (Auto) 0.6, Neut # (Auto) 3.5, Lymph # (Auto) 1.6, [place] # (Auto) 0.3, Eos # (Auto) 0.1, Baso # (Auto) 0.0, Sodium 137, Potassium 3.3 L, Chloride 104, Carbon Dioxide 29, Anion Gap 7.3, BUN 17, Creatinine 1.00, Estimated Creat Clear 99, Estimated GFR 73, Est GFR ( Amer) 89, Glucose 151 H, Calcium 8.8, Magnesium 1.6, Total Bilirubin 0.5, AST 27, ALT 24, Alkaline Phosphatase 59, Troponin I < 0.01, Total Protein 7.0, Albumin 4.2, Globulin 2.8, Albumin/Globulin Ratio 1.5, TSH 0.69 02/24/24 14:30 02/24/24 14:30 Orders (Tests/Meds): ED MEDICATIONS Discontinued Medications Generic Name Dose Route Start Last Admin Trade Name Freq PRN Reason Stop Dose Admin Acetaminophen 1,000 mg 02/24/24 14:17 02/24/24 14:43 Acetaminophen 1,000mg/100ml Vial IV 02/24/24 14:18 1,000 mg ONCE ONE Administration Lactated Ringer's 1,000 mls @ 999 mls/hr 02/24/24 14:30 02/24/24 14:43 Lactated Ringer's 1000 Ml Bag IV 02/24/24 15:30 999 mls/hr .Q1H1M [place] Administration ORDERS Category Date Time Status CT head/brain wo con Stat Cat Scan 02/24/24 14:17 Completed CBC w/Auto Diff [Complete Blood Count Auto Diff] Stat Lab 02/24/24 14:30 Completed CMP [Comprehensive Metabolic Panel] Stat Lab 02/24/24 14:30 Completed Magnesium Stat Lab 02/24/24 14:30 Completed TSH [Thyroid Stimulating Hormone] Stat Lab 02/24/24 14:30 Completed Trop I [Troponin I] Stat Lab 02/24/24 14:30 Completed Troponin I Q3H Lab 02/24/24 17:30 Ordered Troponin I Q3H Lab 02/24/24 20:30 Ordered Medical Decision Narrative: 73-year-old with above history and physical. He does not have a history today of a thunderclap headache but he is very concerned with his history of subarachnoid hemorrhage which is unlikely but he has a worsening headache we will get a noncontrasted CT scan which should rule out any type of intracranial hemorrhage being just a few minutes/hours into his symptoms. CT angiography is not indicated at this moment I am not worried about a vascular dissection or any focal neurologic deficit. It sounds as if the majority of symptoms are described as near syncope will get workup regarding this and if this is unremarkable will refer him to cardiology for further outpatient evaluation. Care will be transitioned to Dr. Donn Gordon at 3 PM. <Donn Gordon MD - Last Filed: 02/24/24 16:06> Vital Signs: 02/24/24 13:47 02/24/24 13:49 02/24/24 14:00 Pulse Rate 57 L Pulse Rate [Right Brachial] 59 L Respiratory Rate 18 Blood Pressure 137/75 135/71 Blood Pressure [Right Arm] 137/75 Blood Pressure Mean [Right Arm] 95 02 Sat by Pulse Oximetry 99 98 94 L Oxygen Delivery Method Room Air 02/24/24 14:31 Pulse Rate 60 Pulse Rate [Right Brachial] Respiratory Rate Blood Pressure 137/79 Blood Pressure [Right Arm] Blood Pressure Mean [Right Arm] 02 Sat by Pulse Oximetry 95 Oxygen Delivery Method Lab Data Lab Results 02/24/24 14:30: WBC 5.6, RBC 4.28 L, Hgb 11.1 L, Hct 35.8 L, MCV 83.5, MCH 26.0 L, MCHC 31.1 L, RDW 14.7, Plt Count 299, MPV 6.8 L, Neut % (Auto) 63.1, Lymph % (Auto) 28.2, [place] % (Auto) 5.8, Eos % (Auto) 2.4, Baso % (Auto) 0.6, Neut # (Auto) 3.5, Lymph # (Auto) 1.6, [place] # (Auto) 0.3, Eos # (Auto) 0.1, Baso # (Auto) 0.0, Sodium 137, Potassium 3.3 L, Chloride 104, Carbon Dioxide 29, Anion Gap 7.3, BUN 17, Creatinine 1.00, Estimated Creat Clear 99, Estimated GFR 73, Est GFR ( Amer) 89, Glucose 151 H, Calcium 8.8, Magnesium 1.6, Total Bilirubin 0.5, AST 27, ALT 24, Alkaline Phosphatase 59, Troponin I < 0.01, Total Protein 7.0, Albumin 4.2, Globulin 2.8, Albumin/Globulin Ratio 1.5, TSH 0.69 Orders (Tests/Meds): ED MEDICATIONS Discontinued Medications Generic Name Dose Route Start Last Admin Trade Name Freq PRN Reason Stop Dose Admin Acetaminophen 1,000 mg 02/24/24 14:17 02/24/24 14:43 Acetaminophen 1,000mg/100ml Vial IV 02/24/24 14:18 1,000 mg ONCE ONE Administration Lactated Ringer's 1,000 mls @ 999 mls/hr 02/24/24 14:30 02/24/24 14:43 Lactated Ringer's 1000 Ml Bag IV 02/24/24 15:30 999 mls/hr .Q1H1M [place] Administration ORDERS Category Date Time Status CT head/brain wo con Stat Cat Scan 02/24/24 14:17 Completed CBC w/Auto Diff [Complete Blood Count Auto Diff] Stat Lab 02/24/24 14:30 Completed CMP [Comprehensive Metabolic Panel] Stat Lab 02/24/24 14:30 Completed Magnesium Stat Lab 02/24/24 14:30 Completed TSH [Thyroid Stimulating Hormone] Stat Lab 02/24/24 14:30 Completed Trop I [Troponin I] Stat Lab 02/24/24 14:30 Completed Troponin I Q3H Lab 02/24/24 17:30 Ordered Troponin I Q3H Lab 02/24/24 20:30 Ordered Medical Decision Narrative: 73-year-old with above history and physical. He does not have a history today of a thunderclap headache but he is very concerned with his history of subarachnoid hemorrhage which is unlikely but he has a worsening headache we will get a noncontrasted CT scan which should rule out any type of intracranial hemorrhage being just a few minutes/hours into his symptoms. CT angiography is not indicated at this moment I am not worried about a vascular dissection or any focal neurologic deficit. It sounds as if the majority of symptoms are described as near syncope will get workup regarding this and if this is unremarkable will refer him to cardiology for further outpatient evaluation. Care will be transitioned to Dr. Donn Gordon at 3 PM. Evan: I assumed primary responsibility for this patient after signout from previous physician. On my evaluation, patient states that he is feeling well, has no acute complaints including headache. Denies vision changes at this time, any presyncopal symptoms. No chest pain, other neurologic deficits. States that this episode only lasted a second or 2 while he was driving, then abated. Came in out of abundance of caution. Patient was given Tylenol by previous provider. On my physical exam, patient grossly neurologically intact, conversational, tolerating p.o. intake, very well-appearing. 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 Independent to rotation workup with nonactionable hematologic labs. Troponin negative. Patient's CT head was independently interpreted and has postsurgical clips in place, no acute bleed. See radiology read for further interpretation. Because patient at baseline without signs or symptoms of clinical decompensation, deemed appropriate for discharge. Results were relayed to patient who voiced understanding and were agreeable to outpatient management and follow up. I discussed my clinical impression with patient and answered all questions. At this time, the evidence for any other entities in the differential is insufficient to warrant any further testing or ED observation. This was explained as well. Advisory was given that persistent or worsening symptoms require further evaluation. I confirmed the understanding of this discussion. Critical Care <Kevin Carver MD - Last Filed: 02/24/24 14:22> Critical Care Time Critical Care Time: No
[2024-02-24 14:31] VITALS: BP 137/79; PULSE 60; O2SAT 95
--- NOTE | 2024-02-24 14:32 | ECG_ITS ---
APPROVED REPORT Exam: Resting ECG HR:58 bpm ECG Measurements Heart Rate 58 AXES AZ 186 P 0 QRSd 106 QRS -60 QT 443 T -11 QTc 439 Conclusion SINUS BRADYCARDIA PATTERN CONSISTENT WITH PULMONARY DISEASE LEFT ANTERIOR FASCICULAR BLOCK [QRS AXIS <= -45, QR IN I, RS IN II] ABNORMAL ECG UNCONFIRMED REPORT Electronically signed by : Gonzalez Carver, 02/24/2024 15:29:32
[2024-02-24 14:43] LABS: Basophils % 0.6 % (0.1-2.0); Eosinophils # 0.1 K/mm3 (0.0-0.4); Eosinophils % 2.4 % (0.1-12.0); Hematocrit 35.8 % (42.0-52.0); Hemoglobin 11.1 g/dL (14.1-18.0); Lymphocytes # 1.6 K/mm3 (0.7-4.5); Lymphocytes % 28.2 % (10-50); Mean Corpuscular HGB Conc 31.1 g/dL (31.8-35.4); Mean Corpuscular Volume 83.5 fl (80-94); Mean Platelet Volume 6.8 fl (7.4-10.4); Monocytes # 0.3 K/mm3 (0.1-1.0); Monocytes % 5.8 % (1.7-9.3); Neutrophils # 3.5 K/mm3 (1.8-7.8); Neutrophils % 63.1 % (37.0-80.0); Platelet Count 299 K/mm3 (142-424); Red Blood Count 4.28 M/mm3 (4.60-6.20); Red Cell Distribution Width 14.7 % (11.5-17.5); White Blood Count 5.6 K/mm3 (4.8-10.8)
[2024-02-24] MEDS: LACTATED RINGERS 1000ML 1,000 ML 999 ML IV (14:43)
[2024-02-24] MEDS: ACETAMINOPHEN 1,000MG/100ML VIAL 1000 MG IV (14:43)
[2024-02-24 14:47] LABS: Albumin Level 4.2 g/dl (3.5-5.0); Chloride 104 mmol/L (98-107)
[2024-02-24 14:48] LABS: Potassium 3.3 mmoL/L (3.5-5.1); Sodium 137 mmol/L (136-145)
[2024-02-24 14:50] LABS: Alanine Aminotransferase 24 U/L (12-78); Albumin/Globulin Ratio 1.5 (1.1-1.8); Anion Gap 7.3 mEq/L (5-15); Aspartate Amino Transferase 27 U/L (17-59); Blood Urea Nitrogen 17 mg/dl (9-20); Carbon Dioxide 29 mmol/L (22.0-30.0); Creatinine Clearance Estimated 99 mL/min (50-200); Estimated Glomerular Filt Rate 73 ml/min (>60); GFR (African American) 89 ML/MIN (>60); Globulin 2.8 g/dL (1.3-3.2)
[2024-02-24 14:51] LABS: Alkaline Phosphatase 59 U/L (38-126); Bilirubin,Total 0.5 mg/dl (0.2-1.3); Calcium 8.8 mg/dl (8.4-10.2); Glucose 151 mg/dl (74-100); Magnesium 1.6 mg/dl (1.6-2.3)
[2024-02-24 15:07] LABS: Troponin I < 0.01 ng/ml (0.00-0.034)
[2024-02-24 15:22] LABS: Thyroid Stimulating Hormone 0.69 uIU/mL (0.465-4.68)
[2024-02-24 16:27] VITALS: BP 137/81; PULSE 81; RESP 18; TEMP 36.9; O2SAT 98
== END 2024-02-24 16:28 | disposition home or self-care (01) ==
PROVIDERS: Student in an Organized Health Care Education/Training Program; Emergency Provider Emergency Medicine; PCP Pediatrics
DX: R55 Syncope and collapse (principal); R51.9 Headache, unspecified
CPT/HCPCS: 70450; 80050; 80053; 83735; 84443; 84484; 85025; 93005; 96361; 96374; 99284; J0131; J7120

== ENCOUNTER 2025-03-28 08:48 | Emergency (ER) | payer OTHER, MEDICARE, SELFPAY ==
[2025-03-28] VITALS (7 sets, daily range): BP systolic 125–138; BP diastolic 69–83; PULSE 61–70; RESP 20–24; TEMP 36.7–36.8; O2SAT 93–98; BMI 31.4
--- NOTE | 2025-03-28 08:53 | PC.NURSE ---
DR LEE AT BEDSIDE
--- NOTE | 2025-03-28 09:02 | CT_ITS ---
FINAL REPORT TECHNIQUE: After the administration of intravenous contrast, axial images were obtained through the abdomen and pelvis by computed tomography. The study was performed with techniques to keep radiation dose as low as reasonably achievable, (ALARA). Individual dose reduction techniques using automated exposure control or adjustment of mA and/or kV according to the patient's size were employed. CLINICAL HISTORY: Recent hemorrhoidecomty, abdominal pain FINDINGS: Abdomen: There are chronic changes at the lung bases. Moderate fatty infiltration of the liver is noted. The gallbladder is present. The spleen, pancreas, and adrenal glands are unremarkable. There is an exophytic cyst in the posterior aspect of the right kidney measuring 2.7 x 2.1 cm. The aorta is normal in caliber. There is no free fluid or adenopathy. Pelvis: The appendix is not identified. The urinary bladder is distended. There is no free fluid or adenopathy. There are diffuse disc bulges L2-3 through L5-S1 with high-grade bilateral neuroforaminal narrowing at these levels. IMPRESSION: Distended urinary bladder. Fatty liver. Diffuse degenerative disc disease. Reviewed, Interpreted and Dictated by Eriberto Lemon MD Transcribed by Kylie Ovalles Authenticated and [facility]
--- NOTE | 2025-03-28 09:03 | HMH.EDGENADL ---
Discharge Plan Disposition Patient Disposition: Home, Self-Care Prescriptions Prescriptions: New oxycodone 5 mg tablet 5 mg PO Q6H PRN (Reason: pain) Qty: 12 0RF No Action prednisone 20 mg tablet 60 mg PO DAILY Qty: 15 0RF ketorolac 10 mg Tablet 10 mg PO Q6H PRN (Reason: pain.) Qty: 8 0RF Referrals Follow up/Referrals: Saad Gurrola MD [Primary Care Provider, Pediatrics] - See instructions Zac Gipson MD [Staff Physician, Urology] - See instructions Activity Restrictions/Add. Instructions Additional Instructions/Restrictions: Continue your home topical medications to help with your hemorrhoid. You are being prescribed a short course of oxycodone for your pain. Take this as prescribed. I am referring you to Dr. Gipson with the urology team given your urinary retention requiring a Sams catheter placement. Contact their office to schedule follow-up and follow-up with your primary care doctor. I do encourage you to follow-up with your surgical team if your pain remains to be uncontrolled. If you develop any new or worsening symptoms, or if you become concerned for your health for any reason, return to the emergency department for evaluation. Clinical Impressions Clinical Impression: Hemorrhoid, Acute urinary retention Print Language Print Language: Ecuadorean Discharge ED Provider: Jamari Arenas Adult HPI General Chief complaint: PAIN Stated complaint: Pain from hemorrhoid removal/poss UTI Time Seen by Provider: 03/28/25 08:51 History of Present Illness HPI narrative: Ciro Erwin is a 74y male with a history of hemorrhoids status post hemorrhoidectomy 9 days ago at the [facility], recently diagnosed diabetes on insulin, hypertension who presents to the emergency department for complaints of rectal pain as well as increased urinary frequency. Patient states that he was prescribed 8 oxycodone and Zofran after his surgery which helped to control the pain some, however over the weekend, he ran out of his medication and has had severe pain ever since. He has tried Epsom salt baths but cannot sit for longer than 5 minutes at a time without recurrence of his pain. He states that starting yesterday into last night, he has had frequent urination has been up most of the night urinating and reports dribbling of urine. He does not know if he has a urinary tract infection. He does report some abdominal pain but denies any fevers. He denies any constipation or bloody stools. Related Data Previous Rx's ?Medication ?Instructions ?Recorded ketorolac 10 mg tablet 10 mg PO Q6H PRN pain. #8 tabs 11/06/22 prednisone 20 mg tablet 60 mg (3 x 20 mg) PO DAILY #15 tabs 11/06/22 oxycodone 5 mg tablet 5 mg PO Q6H PRN pain #12 tabs 03/28/25 Allergies Allergy/AdvReac Type Severity Reaction Status Date / Time celecoxib (From CELEBREX) Allergy Mild Verified 09/26/22 13:19 [facility] Disclaimer: The information contained in this section may have been updated after the patient was seen, as this information can be updated by other users. Social History (Updated 09/26/22 @ 15:18 by Gonzalez Valdes APRN) Smoking Status: Never smoker alcohol intake: never current occupational status: retired Travel in the last 8 weeks?: None Have you lived/traveled outside [place] in past 30 days?: No Contact w/someone who lives/traveled outside US past 30 days?: No Exposure to someone with infectious disease in past 14 days?: No Do you have a fever (greater than 100.4 F or 38 C)?: No Have you tested positive for COVID-19?: No Exposed to someone with COVID-19 in past 14 days?: No Do you have a sore throat?: No Do you have a cough?: No Do you have any weakness?: No Do you have any diarrhea?: No Are you experiencing any unusual bleeding?: No Do you have any muscle aches/pain?: No Do you have any abdominal pain?: No Are you experiencing loss of taste or smell?: No Other Medical History Have you received the Flu Vaccine for this season: Yes Have you received the Pneumonia Vaccine: No ROS Obtained: Yes Systems reviewed as appropriate & no additional complaints except as documented Physical Exam General General appearance: alert and in no apparent distress Comment: uncomfortable appearing Head Head exam: atraumatic Eye Eye exam: Present normal appearance ENT ENT exam: Present normal external ear exam Neck Neck exam: Present full ROM Chest Chest inspection: Present symmetric chest wall rise Respiratory Respiratory exam: Present normal lung sounds bilaterally; Absent respiratory distress, wheezes or stridor Cardiovascular Cardiovascular exam: Present regular rate and normal rhythm Abdominal Exam Abdominal exam: Present soft and tenderness (suprapubic, LLQ); Absent distention or guarding Rectal Exam Rectal exam: Present hemorrhoids (Large hemorrhoid at the 9 o'clock position that is tender to palpation. No blood noted.) exam: Present deferred Extremities Exam Extremities exam: Present normal inspection Back Exam Back exam: Present normal inspection Neurological Exam Neurological exam: Present alert and oriented X3 Psychiatric Psychiatric exam: Present normal affect Skin Skin exam: Present warm and dry Medical Decision Making Medical Records Screening: Per USPSTF and CDC recommendations, given the prevalence of disease in our region, it is our hospital?s policy to screen for HIV and viral Hepatitis for all patients aged 18 and over and those with ongoing risk factors. Javier Inquiry Pt receiving controlled substance: No Vital Signs: 03/28/25 08:49 03/28/25 09:02 03/28/25 10:30 Temperature 98.1 F Temperature Source Oral Pulse Rate 70 61 Pulse Rate [Left Radial] 68 Respiratory Rate 24 Blood Pressure 125/69 130/79 Blood Pressure [Right Arm] 125/69 Blood Pressure Mean 76 88 Blood Pressure Mean [Right Arm] 87 02 Sat by Pulse Oximetry 95 97 93 L Oxygen Delivery Method Room Air 03/28/25 11:07 03/28/25 11:30 03/28/25 12:00 Temperature Temperature Source Pulse Rate 62 70 70 Pulse Rate [Left Radial] Respiratory Rate Blood Pressure 130/79 138/83 133/80 Blood Pressure [Right Arm] Blood Pressure Mean 96 Blood Pressure Mean [Right Arm] 02 Sat by Pulse Oximetry 93 L 98 95 Oxygen Delivery Method Lab Data Lab Results 03/28/25 08:59: WBC 8.3, RBC 4.26 L, Hgb 13.1 L, Hct 37.3 L, MCV 87.6, MCH 30.8, MCHC 35.1, RDW 12.6, Plt Count 291, MPV 9.6, Neut % (Auto) 62.7, Lymph % (Auto) 19.9, [place] % (Auto) 13.9 H, Eos % (Auto) 2.1, Baso % (Auto) 0.8, Neut # (Auto) 5.2, Lymph # (Auto) 1.7, [place] # (Auto) 1.2 H, Eos # (Auto) 0.2, Baso # (Auto) 0.1, VBG pH 7.42 H, VBG pCO2 37.1, VBG pO2 34.1, VBG HCO3 23.5, VBG Total CO2 24.6, VBG O2 Saturation 66.9, VBG Base Excess -1.0, VBG Lactic Acid 2.9 H, Sodium 133 L, Potassium 3.5, Chloride 97 L, Carbon Dioxide 27, Anion Gap 12.5, BUN 23 H, Creatinine 1.00, Estimated Creat Clear 94, Estimated GFR 73, Est GFR ( Amer) 88, Glucose 181 H, Calcium 8.7, Total Bilirubin 0.8, AST 31, ALT 43, Alkaline Phosphatase 70, Total Protein 7.2, Albumin 3.2 L, Globulin 4.0 H, Albumin/Globulin Ratio 0.8 L, Lipase 86, Acetone Level None detected 03/28/25 10:11: Urine Color Yellow, Urine Appearance Clear, Urine pH 5.5, Ur Specific [place] 1.010, Urine Protein Negative, Urine Glucose (UA) Negative, Urine Ketones Negative, Urine Blood Trace-i, Urine Nitrate Negative, Urine Bilirubin Negative, Urine Urobilinogen 0.2, Ur Leukocyte Esterase Negative, Urine RBC None, Urine WBC None, Ur Squamous Epith Cells None, Urine Bacteria None 03/28/25 08:59 03/28/25 08:59 Orders (Tests/Meds): ED MEDICATIONS Generic Name Dose Route Start Last Admin Trade Name Fretoby PRN Reason Stop Dose Admin Sodium Chloride 10 ml 03/28/25 09:36 03/28/25 09:39 Sodium Chloride 0.9% 10ml Syr (Rad Only) IV 04/27/25 09:35 10 ml NEEDED PRN Administration Maintain IV Site Discontinued Medications Generic Name Dose Route Start Last Admin Trade Name Freq PRN Reason Stop Dose Admin Lactated Ringer's 1,000 mls @ 999 mls/hr 03/28/25 09:14 03/28/25 09:18 Lactated Ringer's 1000 Ml Bag IV 03/28/25 10:14 999 mls/hr .Q1H1M ONE Administration Iopamidol 75 ml 03/28/25 09:36 03/28/25 09:39 Iopamidol-370 (76%);100ml Bottle IV 03/28/25 09:37 75 ml ONCE ONE Administration Morphine Sulfate 4 mg 03/28/25 09:02 03/28/25 09:12 Morphine 4mg/Ml Syringe IV 03/28/25 09:03 4 mg ONCE ONE Administration Ondansetron HCl 4 mg 03/28/25 09:02 03/28/25 09:12 Ondansetron 4mg/2ml Vial IV 03/28/25 09:03 4 mg ONCE ONE Administration ORDERS Category Date Time Status CT abdomen pelvis w con Stat Cat Scan 03/28/25 09:02 Completed Acetone, Serum (Rapid) Stat Lab 03/28/25 08:59 Completed CBC w/Auto Diff [Complete Blood Count Auto Diff] Stat Lab 03/28/25 08:59 Completed CMP [Comprehensive Metabolic Panel] Stat Lab 03/28/25 08:59 Completed Lipase Stat Lab 03/28/25 08:59 Completed UA [Urinalysis and Microscopic] Stat Lab 03/28/25 10:11 Completed VBG [Venous Blood Gas] Stat RT 03/28/25 08:59 Completed Medical Decision Narrative: Ciro Erwin is a 74y male with a history of hemorrhoids status post hemorrhoidectomy 9 days ago at the [facility], brain aneurysm s/p clipping, recently diagnosed diabetes on insulin, hypertension who presents to the emergency department for complaints of rectal pain as well as increased urinary frequency. Patient states that he was prescribed 8 oxycodone and Zofran after his surgery which helped to control the pain some, however over the weekend, he ran out of his medication and has had severe pain ever since. He has tried Epsom salt baths but cannot sit for longer than 5 minutes at a time without recurrence of his pain. He states that starting yesterday into last night, he has had frequent urination has been up most of the night urinating and reports dribbling of urine. He does not know if he has a urinary tract infection. He does report some abdominal pain but denies any fevers. He denies any constipation or bloody stools. On arrival, patient is normotensive, heart rate within normal image, breathing comfortably on room air with appropriate oxygen saturation. Physical exam, stated above, revealed an overall uncomfortable appearing male that is nontoxic. He has abdominal tenderness in the suprapubic, left lower quadrants with some mild guarding but no peritonitis. Rectal exam with hospital staff pharmacist shows a large hemorrhoid at the 9 o'clock position that is tender. No bleeding is noted. Cardiopulmonary exam is unremarkable. Differential diagnosis includes, but is not limited to: Thrombosed hemorrhoid, surgical complication such as perirectal abscess, fistula, fissure, DKA, urinary tract infection, among others. Fingerstick blood glucose shows a glucose of 200. Workup in the Emergency Department included: CT abdomen pelvis with IV contrast, CBC with differential, CMP, lipase, urinalysis, lactic acid, urinalysis. Patient was treated with 4 mg of IV morphine and 4 mg of IV Zofran. Patient's workup shows no leukocytosis, stable low hemoglobin at 13.1, hematocrit 37.3. VBG with mildly elevated lactate of 2.9, receiving 1 L lactated ringer. pH mildly elevated at 7.42 but bicarb and pCO2 normal. Mildly low sodium of 133 and BUN mildly elevated at 23 but no BRITTNEY. Glucose normal at 181. Liver enzymes and bilirubin within normal limits. Lipase normal at 86. Urinalysis without evidence of infection. Acetone level not detected. CT abdomen pelvis interpreted by me personally. Patient has a distended urinary bladder but no evidence of abscess or other acute findings. See radiology report for details. On reassessment, patient remained in stable condition and had improvement in pain after morphine. Patient states that he has multiple topical medications that he uses at home that provide some relief. He is amenable to discharge at this time with oxycodone. Will anchor a Sams given his urinary retention. He did state that he had urinary retention after surgery that briefly required Sams catheter. I will have him follow-up with urology given his recurrent urinary retention requiring Sams placement. I did encourage him to follow-up with his surgeon and primary care physician as well. Return precautions were given. All questions were answered. He demonstrated understanding and was in agreement this plan. He was then discharged from the emergency department in stable condition. Critical Care Critical Care Time Critical Care Time: No
[2025-03-28 09:10] LABS: Lactate Venous 2.9 mmol/L (0.4-2.0); VBG HCO3 23.5 mmol/L (23-30); VBG PCO2 37.1 mmol/L (35-51); VBG PH 7.42 mmol/L (7.31-7.41); VBG PO2 34.1 mmol/L (28-40)
[2025-03-28] MEDS: MORPHINE 4MG/ML SYRINGE 4 MG IV (09:12)
[2025-03-28] MEDS: ONDANSETRON 4MG/2ML VIAL 4 MG IV (09:12)
[2025-03-28 09:13] LABS: Albumin Level 3.2 g/dl (3.5-5.0); Chloride 97 mmol/L (98-107); Hematocrit 37.3 % (42.0-52.0); Hemoglobin 13.1 g/dL (14.1-18.0); Immature Granulocytes % 0.6 %; Mean Corpuscular HGB Conc 35.1 g/dL (31.8-35.4); Mean Corpuscular Hemoglobin 30.8 pg (27.0-31.2); Mean Corpuscular Volume 87.6 fl (80-94); Nucleated Red Blood Cells % 0 %; Platelet Count 291 K/mm3 (142-424); Potassium 3.5 mmoL/L (3.5-5.1); Red Blood Count 4.26 M/mm3 (4.60-6.20); Red Cell Distribution Width-SD 40.0 fL; Sodium 133 mmol/L (136-145); White Blood Count 8.3 K/mm3 (4.8-10.8)
--- NOTE | 2025-03-28 09:15 | PC.NURSE ---
fax[facility] at this time.
[2025-03-28 09:16] LABS: Alanine Aminotransferase 43 U/L (12-78); Albumin/Globulin Ratio 0.8 (1.1-1.8); Alkaline Phosphatase 70 U/L (38-126); Anion Gap 12.5 mEq/L (5-15); Aspartate Amino Transferase 31 U/L (17-59); Bilirubin,Total 0.8 mg/dl (0.2-1.3); Blood Urea Nitrogen 23 mg/dl (9-20); Calcium 8.7 mg/dl (8.4-10.2); Carbon Dioxide 27 mmol/L (22.0-30.0); Creatinine Clearance Estimated 94 mL/min (50-200); Creatinine,Serum 1.00 mg/dl (0.66-1.25); Estimated Glomerular Filt Rate 73 ml/min (>60); GFR (African American) 88 ML/MIN (>60); Globulin 4.0 g/dL (1.3-3.2); Glucose 181 mg/dl (74-100); Lipase 86 U/L (23-300); Total Protein,Serum 7.2 g/dl (6.3-8.2)
[2025-03-28] MEDS: LACTATED RINGERS 1000ML 1,000 ML 999 ML IV (09:18)
[2025-03-28 09:32] LABS: Acetone, Serum (Rapid) None Detected (None Detect)
[2025-03-28] MEDS: SODIUM CHLORIDE 0.9% 10ML SYR (RAD ONLY) 10 ML IV (09:39)
[2025-03-28] MEDS: IOPAMIDOL-370 (76%);100ML BOTTLE 75 ML IV (09:39)
[2025-03-28 10:16] LABS: Microscopic, Urine URINE MICROSCOPIC (MICROSCOPIC)
[2025-03-28 10:25] LABS: Bilirubin,Urine Negative (Negative); Color,Urine YELLOW (Yellow); Glucose,Urine (UA) Negative (Negative); Ketones,Urine Negative (Negative); Leukocyte Esterase,Urine Negative (Negative); PH,Urine 5.5 (5.0-8.5); Protein,Urine Negative (Negative); Specific Gravity, Urine 1.010 (1.005-1.030); Urobilinogen,Urine 0.2 EU/dl (0.2)
--- NOTE | 2025-03-28 11:25 | PC.NURSE ---
DR LEE AT BEDSIDE TO UPDATE PT
[2025-03-28 12:30] LABS: Microscopic, Urine URINE MICROSCOPIC (MICROSCOPIC)
[2025-03-28 12:35] LABS: Bilirubin,Urine Negative (Negative); Color,Urine YELLOW (Yellow); Glucose,Urine (UA) Negative (Negative); Ketones,Urine Negative (Negative); Leukocyte Esterase,Urine Negative (Negative); PH,Urine 6.0 (5.0-8.5); Protein,Urine Negative (Negative); Specific Gravity, Urine <= 1.005 (1.005-1.030); Urobilinogen,Urine 0.2 EU/dl (0.2)
[2025-03-28 12:58] LABS: Bacteria,Urine Trace /lpf; WBC,Urine Occasional #/hpf (0-3)
[2025-03-28 13:10] LABS: Reflex Lactic Add Lactic Reflex
== END 2025-03-28 12:25 | disposition home or self-care (01) ==
PROVIDERS: Emergency Provider Student in an Organized Health Care Education/Training Program; PCP Pediatrics
DX: R10.32 Left lower quadrant pain (principal); R10.24 Suprapubic pain; R74.02 Elevation of levels of lactic acid dehydrogenase [LDH]; K62.89 Other specified diseases of anus and rectum; K64.8 Other hemorrhoids; R35.0 Frequency of micturition
CPT/HCPCS: 51702; 74177; 80053; 81001; 82009; 82803; 83690; 85025; 96361; 96374; 96375; 99285; J2270; J2405; J7120; Q9967

== ENCOUNTER 2025-04-09 13:37 | Emergency (ER) | payer OTHER, SELFPAY ==
[2025-04-09 14:15] VITALS: BP 119/73; PULSE 113; RESP 16; TEMP 37.7; O2SAT 95; BMI 32.1
--- NOTE | 2025-04-09 14:30 | CT_ITS ---
PROCEDURE INFORMATION: Exam: CT Abdomen And Pelvis With Contrast Exam date and time: 04/09/2025 3:48 PM Age: 74 years old Clinical indication: Abdominal pain; Additional info: Abd pain TECHNIQUE: Imaging protocol: Computed tomography of the abdomen and pelvis with contrast. Radiation optimization: All CT scans at this facility use at least one of these dose optimization techniques: automated exposure control; mA and/or kV adjustment per patient size (includes targeted exams where dose is matched to clinical indication); or iterative reconstruction. Contrast material: ISOVUE; Contrast volume: 75 ml; Contrast route: IV; COMPARISON: CT ABDOMEN PELVIS W CON 03/28/2025 9:39 AM FINDINGS: Liver: Normal. No mass. Gallbladder and biliary ducts: Possible gallstone in the gallbladder. Pancreas: Pancreatic atrophy Spleen: Normal. No splenomegaly. Adrenal glands: Normal. No mass. Kidneys and ureters: 3 cm mass posterior right kidney 30 Hounsfield units.. There is no evidence of renal or ureteral calcifications. Stomach and bowel: Diverticulosis of the rectosigmoid. No jr diverticulitis . No obstruction Appendix: Normal appendix Intraperitoneal space: Unremarkable. No free air. No significant fluid collection. Vasculature: Unremarkable. No abdominal aortic aneurysm. Lymph nodes: Calcified left hilar nodes may reflect prior granulomatous disease Urinary bladder: Unremarkable as visualized. Reproductive: The prostate is enlarged, greater than 6 cm. Recommend urology consult. Bones/joints: Unremarkable. No acute fracture. Soft tissues: Unremarkable. IMPRESSION: 1. Possible gallstone in the gallbladder. 2. 3 cm mass posterior right kidney 30 Hounsfield units.. Recommend nonemergent evaluation of the mass with MR without and with contrast or CT without and with contrast. MR is preferred for masses under 1.5 cm. 3. The prostate is enlarged, greater than 6 cm. Recommend urology consult. COMMENTS: Consistent with the [employer]'s Incidental Findings Committee white paper (J Am Raghav Radiol 2018): Any incidental renal lesion less than 1 cm or classified as too small to characterize, or any incidental cystic renal lesion characterized as simple-appearing, is likely benign. No follow-up imaging is recommended for these lesions per consensus recommendations based on imaging criteria.
--- NOTE | 2025-04-09 14:31 | ED_ITS ---
<Statement entered by Kevin Carver MD - 04/09/25 22:55> I was consulted by the MARIA DEL CARMEN, and we discussed the complexity of the problems being addressed. I approved the treatment and management plan for this patient's care in the emergency department, thus performing a substantive portion of the medical decision making. Kevin Carver MD, IAIN, FACE Discharge Plan Disposition Patient Disposition: Home, Self-Care Condition: Fair Prescriptions Prescriptions: New sulfamethoxazole-trimethoprim [Bactrim DS] 800-160 mg tablet 1 tab PO BID 14 Days Qty: 28 0RF No Action prednisone 20 mg tablet 60 mg PO DAILY Qty: 15 0RF ketorolac 10 mg Tablet 10 mg PO Q6H PRN (Reason: pain.) Qty: 8 0RF oxycodone 5 mg tablet 5 mg PO Q6H PRN (Reason: pain) Qty: 12 0RF Referrals Follow up/Referrals: Saad Gurrola MD [Primary Care Provider, Pediatrics] - See instructions Zac Gipson MD [Staff Physician, Urology] - See instructions Activity Restrictions/Add. Instructions Additional Instructions/Restrictions: Today you were evaluated in the emergency department. You have a infection called prostatitis, please take the Bactrim as directed. You will need to follow-up with urology for further evaluation, please call Dr. Gipson's office and schedule follow-up. Clinical Impressions Clinical Impression: Acute prostatitis, Mass of right kidney Instructions Patient Instructions: DI for Urinary Tract Infection (UTI), DI for Urinary Tract Infection in Children Print Language Print Language: [place] Discharge ED Provider: Kevin Carver General Adult HPI General Chief complaint: Urogenital-Male Stated complaint: blood in urine, unable to urinate Time Seen by Provider: 04/09/25 14:23 History of Present Illness HPI narrative: patient is a 74-year-old male PMHx cholelithiasis, hypokalemia, [facility] patient who presents to the ED for complaints of unable to urinate, suprapubic abdominal pain, reports he feels a pressure in the lower part of his abdomen. He states that approximately 4 weeks ago he went to the [place] to have a [place] on a hemorrhoid, at that time he was newly diagnosed with diabetes and a possible prostate issue. Related Data Previous Rx's ?Medication ?Instructions ?Recorded ketorolac 10 mg tablet 10 mg PO Q6H PRN pain. #8 ta bs 11/06/22 prednisone 20 mg tablet 60 mg (3 x 20 mg) PO DAILY # 15 tabs 11/06/22 oxycodone 5 mg tablet 5 mg PO Q6H PRN pain #12 tab s 03/28/25 sulfamethoxazole 800 1 tab PO BID 14 days #28 tab s 04/09/25 mg-trimethoprim 160 mg tablet (Bactrim DS) Allergies Allergy/AdvReac Type Severity Reaction Status Date / Time celecoxib (From CELEBREX) Allergy Mild Verified 09/26/22 13:19 [facility] Disclaimer: The information contained in this section may have been updated after the patient was seen, as this information can be updated by other users. Social History Smoking Status: Never smoker alcohol intake: never current occupational status: retired Travel in the last 8 weeks?: None Have you lived/traveled outside [place] in past 30 days?: No Contact w/someone who lives/traveled outside [place] past 30 days?: No Exposure to someone with infectious disease in past 14 days?: No Do you have a fever (greater than 100.4 F or 38 C)?: No Have you tested positive for COVID-19?: No Exposed to someone with COVID-19 in past 14 days?: No Do you have a sore throat?: No Do you have a cough?: No Do you have any weakness?: No Do you have any diarrhea?: No Are you experiencing any unusual bleeding?: No Do you have any muscle aches/pain?: No Do you have any abdominal pain?: No Are you experiencing loss of taste or smell?: No Other Medical History Have you received the Flu Vaccine for this season: Yes Have you received the Pneumonia Vaccine: No ROS Obtained: Yes Systems reviewed as appropriate & no additional complaints except as documented Physical Exam General General appearance: alert Head Head exam: atraumatic Eye Eye exam: Present PERRL Respiratory Respiratory exam: Present normal lung sounds bilaterally Cardiovascular Cardiovascular exam: Present regular rate Abdominal Exam Abdominal exam: Present tenderness (suprapubic ) Neurological Exam Neurological exam: Present alert and oriented X3 Medical Decision Making Medical Records Screening: Per USPSTF and CDC recommendations, given the prevalence of disease in our region, it is our hospital?s policy to screen for HIV and viral Hepatitis for all patients aged 18 and over and those with ongoing risk factors. Javier Inquiry Pt receiving controlled substance: No Vital Signs: 04/09/25 14:15 04/09/25 14:15 04/09/25 16:40 Temperature 100 F H 100 F H Temperature Source Oral Oral Pulse Rate 113 H 109 H Pulse Rate [Right] 113 H Respiratory Rate 16 16 Blood Pressure 119/73 169/95 H Blood Pressure [Right Arm] 119/73 Blood Pressure Mean [Right Arm] 88 Blood Pressure Source Automatic Cuff Blood Pressure Source [Right Arm] Automatic Cuff Blood Pressure Position Supine Blood Pressure Position [Right Arm] Supine 02 Sat by Pulse Oximetry 95 95 95 Oxygen Delivery Method Room Air Room Air Room Air 04/09/25 17:00 04/09/25 17:44 Temperature 99.6 F Temperature Source Pulse Rate 105 H 105 H Pulse Rate [Right] Respiratory Rate 19 Blood Pressure 169/95 H Blood Pressure [Right Arm] Blood Pressure Mean [Right Arm] Blood Pressure Source Blood Pressure Source [Right Arm] Blood Pressure Position Blood Pressure Position [Right Arm] 02 Sat by Pulse Oximetry 95 Oxygen Delivery Method Room Air Lab Data Lab Results 04/09/25 14:33: Urine Color Yellow, Urine Appearance Clear, Urine pH 7.0, Ur Specific [place] 1.010, Urine Protein 1+ A, Urine Glucose (UA) Negative, Urine Ketones Negative, Urine Blood 3+ A, Urine Nitrate Negative, Urine Bilirubin Negative, Urine Urobilinogen 0.2, Ur Leukocyte Esterase 3+ A, Urine RBC 20-50, Urine WBC Tntc, Ur Squamous Epith Cells None, Urine Bacteria 4+ 04/09/25 15:01: WBC 12.7 H, RBC 4.12 L, Hgb 12.6 L, Hct 36.3 L, MCV 88.1, MCH 30.6, MCHC 34.7, RDW 12.3, Plt Count 219, MPV 9.3, Neut % (Auto) 83.9 H, Lymph % (Auto) 8.0 L, [place] % (Auto) 6.9, Eos % (Auto) 0.2, Baso % (Auto) 0.5, Neut # (Auto) 10.7 H, Lymph # (Auto) 1.0, [place] # (Auto) 0.9, Eos # (Auto) 0.0, Baso # (Auto) 0.1, PT 12.0, INR 1.09, APTT 24.8, Sodium 134 L, Potassium 4.0, Chloride 98, Carbon Dioxide 27, Anion Gap 13.0, BUN 24 H, Creatinine 1.20, Estimated Creat Clear 80, Estimated GFR 59, Est GFR ( Amer) 72, Glucose 132 H, Calcium 8.8, Total Bilirubin 1.1, AST 25, ALT 36, Alkaline Phosphatase 67, Total Protein 7.0, Albumin 4.6, Globulin 2.4, Albumin/Globulin Ratio 1.9 H 04/09/25 15:01 04/09/25 15:01 Orders (Tests/Meds): ED MEDICATIONS Discontinued Medications Generic Name Dose Route Start Last Admin Trade Name Freq PRN Reason Stop Dose Admin Acetaminophen 1,000 mg 04/09/25 15:46 04/09/25 16:33 Acetaminophen 1,000mg/100ml Vial IV 04/09/25 15:47 1,000 mg ONCE ONE Administration Ceftriaxone Sodium 1 gm/ 50 mls @ 100 mls/hr 04/09/25 15:27 04/09/25 17:23 Sodium Chloride IV 04/09/25 15:56 Infused ONCE ONE Infusion Iopamidol 75 ml 04/09/25 15:51 04/09/25 15:52 Iopamidol-370 (76%);100ml Bottle IV 04/09/25 15:52 75 ml ONCE ONE Administration Sodium Chloride 10 ml 04/09/25 15:51 04/09/25 15:52 Sodium Chloride 0.9% 10ml Syr (Rad Only) IV 05/09/25 15:50 10 ml NEEDED PRN Administration Maintain IV Site ORDERS Category Date Time Status CT abdomen pelvis w con Stat Cat Scan 04/09/25 14:30 Completed CBC w/Auto Diff [Complete Blood Count Auto Diff] Stat Lab 04/09/25 15:01 Completed CMP [Comprehensive Metabolic Panel] Stat Lab 04/09/25 15:01 Completed PT/PTT Stat Lab 04/09/25 15:01 Completed Urinalysis and Microscopic Stat Lab 04/09/25 14:33 Completed Blood Culture Stat Micro 04/09/25 16:11 Received Urine Culture Stat Micro 04/09/25 14:33 Received Medical Decision Narrative: In summary patient is a 74-year-old male PMHx cholelithiasis, hypokalemia, [facility] who presents to the ED for complaints of unable to urinate, suprapubic abdominal pain, reports he feels a pressure in the lower part of his abdomen. He states that approximately 4 weeks ago he went to [place] to have [place] on a hemorrhoid, at that time he was newly diagnosed with diabetes and a possible prostate issue. Patient states he was given a medication for his prostate and advised to self cath until follow-up, patient has not had any follow-up since then. He states that he is unable to get any urine when he caths and is having significant pain. He reports last night at 3 AM he had a fever and chills. Denies headache, recent trauma, nausea vomiting, back pain. Differential diagnosis include obstruction, infectious process, sepsis, stone, among others. I discussed with patient we will obtain labs, straight cath for urinalysis, CT scan of the abdomen pelvis. He will be symptomatically managed with morphine, Zofran and IV fluids. CBC remarkable for WBC 12.7, stable H&H. Normal PT, INR, APTT. CMP overall unremarkable. Urinalysis remarkable for 3+ blood, 3+ leuk, 4+ bacteria. Ceftriaxone administered. CT scan of the abdomen and pelvis remarkable for a possible gallstone, 3 cm mass posterior right kidney, recommend MRI for this. Enlarged prostat greater than 6 cm. Shared decision making used, I offered patient a Sams catheter, he declined. We discussed that he will need to follow-up with urology and provided him with Dr. Gipson's phone number. Discussed that he will need to have the mass on the right kidney evaluated further with separate imaging, most likely ordered by his PCP. Discussed that he will need to take Bactrim for 14 days for prostatitis. We discussed return precautions to the ED and patient verbalized understanding. He was stable and ambulatory from the ED without difficulty. Critical Care Critical Care Time Critical Care Time: No
[2025-04-09 14:44] LABS: Microscopic, Urine URINE MICROSCOPIC (MICROSCOPIC)
[2025-04-09 14:52] LABS: Bilirubin,Urine Negative (Negative); Color,Urine YELLOW (Yellow); Glucose,Urine (UA) Negative (Negative); Ketones,Urine Negative (Negative); Leukocyte Esterase,Urine 3+ (Negative); PH,Urine 7.0 (5.0-8.5); Protein,Urine 1+ (Negative); Specific Gravity, Urine 1.010 (1.005-1.030); Urobilinogen,Urine 0.2 EU/dl (0.2)
[2025-04-09 14:58] LABS: Bacteria,Urine 4+ /lpf; RBC,Urine 20-50 #/hpf (0-3); WBC,Urine TNTC #/hpf (0-3)
[2025-04-09 15:17] LABS: Hematocrit 36.3 % (42.0-52.0); Hemoglobin 12.6 g/dL (14.1-18.0); Immature Granulocytes % 0.5 %; Mean Corpuscular HGB Conc 34.7 g/dL (31.8-35.4); Mean Corpuscular Hemoglobin 30.6 pg (27.0-31.2); Mean Corpuscular Volume 88.1 fl (80-94); Nucleated Red Blood Cells % 0 %; Platelet Count 219 K/mm3 (142-424); Red Blood Count 4.12 M/mm3 (4.60-6.20); Red Cell Distribution Width-SD 39.7 fL; White Blood Count 12.7 K/mm3 (4.8-10.8)
[2025-04-09 15:26] LABS: Albumin Level 4.6 g/dl (3.5-5.0); Chloride 98 mmol/L (98-107); Potassium 4.0 mmoL/L (3.5-5.1); Sodium 134 mmol/L (136-145)
[2025-04-09 15:29] LABS: Activated Partial Thrombo Time 24.8 seconds (22.8-30.6); Alanine Aminotransferase 36 U/L (12-78); Albumin/Globulin Ratio 1.9 (1.1-1.8); Alkaline Phosphatase 67 U/L (38-126); Anion Gap 13.0 mEq/L (5-15); Aspartate Amino Transferase 25 U/L (17-59); Bilirubin,Total 1.1 mg/dl (0.2-1.3); Blood Urea Nitrogen 24 mg/dl (9-20); Carbon Dioxide 27 mmol/L (22.0-30.0); Creatinine Clearance Estimated 80 mL/min (50-200); Creatinine,Serum 1.20 mg/dl (0.66-1.25); Estimated Glomerular Filt Rate 59 ml/min (>60); GFR (African American) 72 ML/MIN (>60); Globulin 2.4 g/dL (1.3-3.2); INR 1.09 (0.9-1.1); Prothrombin Time 12.0 seconds (10.1-12.5); Total Protein,Serum 7.0 g/dl (6.3-8.2)
[2025-04-09 15:30] LABS: Calcium 8.8 mg/dl (8.4-10.2); Glucose 132 mg/dl (74-100)
[2025-04-09] MEDS: SODIUM CHLORIDE 0.9% 10ML SYR (RAD ONLY) 10 ML IV (15:52)
[2025-04-09] MEDS: IOPAMIDOL-370 (76%);100ML BOTTLE 75 ML IV (15:52)
[2025-04-09] MEDS: ACETAMINOPHEN 1,000MG/100ML VIAL 1000 MG IV (16:33)
[2025-04-09 16:40] VITALS: BP 169/95; PULSE 109; O2SAT 95
[2025-04-09 17:00] VITALS: PULSE 105; O2SAT 95
--- NOTE | 2025-04-09 17:18 | PC.NURSE ---
post void residual completed on pt. >500 pt does not want an indwelling araiza at this time.. [employer]DER BLENDER @ bedside
[2025-04-09 17:44] VITALS: BP 169/95; PULSE 105; RESP 19; TEMP 37.6
--- NOTE | 2025-04-12 05:21 | PC.NURSE ---
Prelim urine cx GRAM NEG RODS- d/c'd w Bactrim. Raman per Dr. Yancey
--- NOTE | 2025-04-13 05:07 | PC.NURSE ---
DARYL flores per Dr. Onofre
== END 2025-04-09 17:45 | disposition home or self-care (01) ==
PROVIDERS: Nurse Practitioner; Emergency Provider Student in an Organized Health Care Education/Training Program; PCP Pediatrics
DX: R10.24 Suprapubic pain (principal); N39.0 Urinary tract infection, site not specified; N41.0 Acute prostatitis; R33.9 Retention of urine, unspecified; N28.89 Other specified disorders of kidney and ureter; R31.9 Hematuria, unspecified; B96.1 Klebsiella pneumoniae [K. pneumoniae] as the cause of diseases classified elsewhere
CPT/HCPCS: 74177; 80053; 81001; 85025; 85610; 85730; 87040; 87086; 87088; 87186; 96365; 96375; 99285; J0131; J0696; Q9967